=== PATIENT | male | born 2000 | race African-American/Black ===

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

== ENCOUNTER 2023-10-16 13:27 | Emergency (ER) | payer OTHER | END 2023-10-16 14:10 | disposition home or self-care (01) | LOC: MADERS 13:27 | DX: R21 Rash and other nonspecific skin eruption (principal) | CPT/HCPCS: 99282 ==